=== PATIENT | female | born 1955 | race Caucasian/White ===

== ENCOUNTER → 2017-11-30 | Outpatient (CLI) | payer OTHER ==
[~2017-11-30] MED LIST: ACET325T14 PO; CHOL3000 PO; ESTR1PAT65 TD; FENT1PAT76 TP; LEVO50TA5 PO; LUTE6CAP3 PO; MULT-257 PO; VITA1TAB56 PO
== END | disposition home or self-care (01) ==
LOC: CFH 08:53
PROVIDERS: ATTEND Internal Medicine Cardiovascular Disease
DX: I10 Essential (primary) hypertension (principal); R00.1 Bradycardia, unspecified; R42 Dizziness and giddiness
CPT/HCPCS: 71046

== ENCOUNTER → 2018-01-04 | Outpatient (CLI) | payer OTHER ==
[~2018-01-04] MED LIST changes: +REGADENOSON 0.4 MG/5 ML SYRINGE ONE
== END | disposition home or self-care (01) ==
LOC: CFH 12:33
PROVIDERS: ATTEND Internal Medicine Cardiovascular Disease
DX: R07.9 Chest pain, unspecified (principal); R53.83 Other fatigue; R06.02 Shortness of breath
CPT/HCPCS: 78452; 93017; A9502; J2785

== ENCOUNTER → 2018-01-07 | Outpatient (CLI) | payer OTHER ==
[~2018-01-07] MED LIST changes: -REGADENOSON 0.4 MG/5 ML SYRINGE ONE
[2018-01-07 11:27] LABS: CREATININE 0.76 mg/dL (0.55-1.02)
== END | disposition home or self-care (01) ==
LOC: LAB 10:49
PROVIDERS: ATTEND Nurse Practitioner Family
DX: Z01.818 Encounter for other preprocedural examination (principal); I08.1 Rheumatic disorders of both mitral and tricuspid valves; Z95.0 Presence of cardiac pacemaker
CPT/HCPCS: 36415; 71275; 82565; 93306

== ENCOUNTER 2018-09-19 12:34 | Outpatient (CLI) | payer OTHER ==
[2018-09-19] MEDS ORDERED: LIDOCAINE-MPF 1%, 5ML ONE (12:41)
[2018-09-19] MEDS ORDERED: SODIUM BICARBONATE 4.0%, 5ML ONE (12:42)
[2018-09-19] MEDS ORDERED: ROPivacaine/PF 0.2%, 10 ML ONE (12:42)
== END 2018-09-19 23:59 | disposition home or self-care (01) ==
LOC: RAD 12:34
PROVIDERS: ATTEND Orthopaedic Surgery
DX: M19.012 Primary osteoarthritis, left shoulder (principal); M25.712 Osteophyte, left shoulder; M25.812 Other specified joint disorders, left shoulder; Z95.0 Presence of cardiac pacemaker
CPT/HCPCS: 73040; 73201; J2795

== ENCOUNTER → 2020-06-03 | Outpatient (CLI) | payer OTHER | END | disposition home or self-care (01) | LOC: STAR 08:19 | PROVIDERS: ATTEND Internal Medicine | DX: Z01.818 Encounter for other preprocedural examination (principal); Z01.89 Encounter for other specified special examinations; R79.1 Abnormal coagulation profile | CPT/HCPCS: 93005 ==

== ENCOUNTER 2021-01-06 08:20 | Outpatient (CLI) | payer OTHER | END 2021-01-06 23:59 | disposition home or self-care (01) | LOC: CFH 08:20 | PROVIDERS: ATTEND Obstetrics & Gynecology Female Pelvic Medicine and Reconstructive Surgery | DX: Z12.31 Encounter for screening mammogram for malignant neoplasm of breast (principal) | CPT/HCPCS: 77067 ==